=== PATIENT | male | born 1990 | race Caucasian/White ===

== ENCOUNTER 2018-07-09 18:42 | Emergency (ER) | payer OTHER ==
[2018-07-09] MEDS ORDERED: CHERRY SYRUP 10 ML UDC PO ONE (20:25)
[2018-07-09] MEDS ORDERED: diphenhydrAMINE 25 MG CAPSULE PO STA (20:25)
[2018-07-09] MEDS ORDERED: HYDROcod/ACETAM 5/325 MG TABLET PO STA (20:25)
[2018-07-09] MEDS ORDERED: DEXAMETHASONE 10 MG/ML VIAL PO STA (20:25)
[2018-07-09] MEDS ORDERED: NAPROXEN 250 MG TABLET PO STA (20:26)
--- NOTE | 2018-07-09 20:31 | ED Physician Documentation ---
PD HPI URI - Stated complaint Stated Complaint: SORE THROAT - Chief complaint Chief Complaint: Heent - History obtained from History obtained from: Patient - History of Present Illness Timing - onset: How many days ago (2-3) Timing duration: Days (2-3 with worsening today) Timing details: Abrupt onset, Still present Associated symptoms: Sore throat, Swollen nodes, Dry cough. No: Fever, Chills, Nasal congestion, Dyspnea, NVD Contributing factors: No: Sick contact, COPD / asthma Worsened by: Activity, Other (swallowing) Similar symptoms before: Has not had sx before Recently seen: Not recently seen Review of Systems Constitutional: reports: Myalgias. denies: Fever, Chills Nose: denies: Rhinorrhea / runny nose, Congestion Throat: reports: Sore throat Respiratory: reports: Cough GI: denies: Abdominal Pain, Nausea, Vomiting, Diarrhea Skin: denies: Rash Neurologic: denies: Altered mental status, Headache PD PAST MEDICAL HISTORY - Past Medical History Past Medical History: No Cardiovascular: None Respiratory: None Neuro: None Endocrine/Autoimmune: None GI: None : None HEENT: None Psych: Depression, Anxiety Musculoskeletal: None Derm: None - Past Surgical History Past Surgical History: No - Present Medications Home Medications: Ambulatory Orders Medication Instructions Recorded Confirmed Dexamethasone [Decadron] 4 mg PO DAILY #5 tablet 07/09/18 Hydrocodone/Acetaminophen [[place] 1 each PO Q6H PRN #12 tablet 07/09/18 5-325 Tablet] Ibuprofen 600 mg PO TID PRN #20 tablet 07/09/18 diphenhydrAMINE [Benadryl] 25 mg PO Q4-6H PRN #15 capsule 07/09/18 - Allergies Allergies/Adverse Reactions: Allergies Allergy/AdvReac Type Severity Reaction Status Date / Time No Known Drug Allergies Allergy Verified 07/09/18 18:51 - Social History Does the pt smoke?: Yes Smoking Status: Current every day smoker Does the pt drink ETOH?: No Does the pt have substance abuse?: No - Immunizations Immunizations are current?: Yes - POLST Patient has POLST: No PD ED PE NORMAL - Vitals Vital signs reviewed: Yes - General General: Alert and oriented X 3, Well developed/nourished, Other (appears uncomfortable with swallowing. ) - HEENT HEENT: Ears normal, Moist mucous membranes. No: Pharynx benign (some tonsillar swelling without much redness and no exudate. No peritonsillar swelling. Neck with mild anterior adenopathy. ) - Neck Neck: Supple, no meningeal sign - Cardiac Cardiac: RRR, No murmur - Respiratory Respiratory: Clear bilaterally - Abdomen Abdomen: Soft, Non tender - Derm Derm: Normal color, Warm and dry, No rash - Neuro Neuro: Alert and oriented X 3, No motor deficit, Normal speech Results - Vitals Vitals: Vital Signs - 24 hr 07/09/18 07/09/18 18:49 20:45 Temperature 37.9 C H 37.3 C Heart Rate 85 84 Respiratory 20 16 Rate Blood Pressure 152/77 H 138/75 H O2 Saturation 97 99 Oxygen O2 Source Room air - Labs Labs: Laboratory Tests 07/09/18 18:50 Group A Strep Rapid Negative Departure - Departure Disposition: Home, Self Care Clinical Impression: Acute pharyngitis Qualifiers: Pharyngitis/tonsillitis etiology: unspecified etiology Qualified Code(s): J02.9 - Acute pharyngitis, unspecified Condition: Stable Record reviewed to determine appropriate education?: Yes Instructions: ED Pharyngitis Viral Report Pending Follow-Up: [facility] [Provider Group] Prescriptions: Dexamethasone [Decadron] 4 mg PO DAILY #5 tablet diphenhydrAMINE [Benadryl] 25 mg PO Q4-6H PRN #15 capsule PRN Reason: Allergy Symptoms Hydrocodone/Acetaminophen [[place] 5-325 Tablet] 1 each PO Q6H PRN #12 tablet PRN Reason: Pain Ibuprofen 600 mg PO TID PRN #20 tablet PRN Reason: Pain Comments: Stay well-hydrated. Use Tylenol or ibuprofen as needed for pains or fevers. Decadron steroid for inflammation for the next few days. Benadryl as needed for congestion. At hydrocodone if needed for pain. Off work tomorrow. Recheck if not improving over the next couple of days. Your rapid strep test is negative here. There is a culture pending and it will result in a couple of days and we will call you if it shows any bacterial cause. Discharge Date/Time: 07/09/18 20:48
[2018-07-09 20:46] VITALS: BP 138/75
== END 2018-07-09 20:48 | disposition home or self-care (01) ==
LOC: ED 18:42
DX: J02.9 Acute pharyngitis, unspecified (principal); F17.200 Nicotine dependence, unspecified, uncomplicated
CPT/HCPCS: 87070; 87430; 99283; A9270

== ENCOUNTER 2019-01-29 14:08 | Emergency (ER) | payer OTHER ==
--- NOTE | 2019-01-29 15:31 | ED Physician Documentation ---
History of Present Illness - Stated complaint Stated Complaint: NAUSEA/BLURRED VISION - Chief complaint Chief Complaint: Heent - Additonal information Additional information: This is a 28-year-old male who presents with vision changes and nausea which are now resolved. At around 11 AM he began having a waviness and the right peripheral visual field of his right eye. This resolved after 20 minutes or so but then he developed pain behind his left eye (opposite eye from the visual disurbance) which was not associated with any vision changes. He subsequently felt quite nauseated, and he had to go lay down. These symptoms have resolved and now he is currently symptom-free. He denies any changes in vision currently, no eye pain, no nausea. No abdominal pain no vomiting. He is never had this happen before. He has no history of eye problems, no history of migraines. He had no weakness or numbness associated with this event. Review of Systems Constitutional: denies: Fever Eyes: reports: Other (Visual disturbance) GI: reports: Nausea PD PAST MEDICAL HISTORY - Past Medical History Cardiovascular: None Respiratory: None Neuro: None Endocrine/Autoimmune: None GI: None : None HEENT: None Psych: Depression, Anxiety Musculoskeletal: None Derm: None - Past Surgical History Past Surgical History: No - Present Medications Home Medications: Ambulatory Orders Medication Instructions Recorded Confirmed Hydrocodone/Acetaminophen [[place] 1 each PO Q6H PRN #12 tablet 07/09/18 5-325 Tablet] Ibuprofen 600 mg PO TID PRN #20 tablet 07/09/18 dexAMETHasone [Decadron] 4 mg PO DAILY #5 tablet 07/09/18 diphenhydrAMINE [Benadryl] 25 mg PO Q4-6H PRN #15 capsule 07/09/18 - Allergies Allergies/Adverse Reactions: Allergies Allergy/AdvReac Type Severity Reaction Status Date / Time No Known Drug Allergies Allergy Verified 01/29/19 14:16 - Social History Does the pt smoke?: Yes Smoking Status: Current every day smoker Does the pt drink ETOH?: No Does the pt have substance abuse?: No - Immunizations Immunizations are current?: Yes - POLST Patient has POLST: No PD ED PE NORMAL - Vitals Vital signs reviewed: Yes - General General: Alert and oriented X 3, No acute distress - HEENT HEENT: Atraumatic, PERRL, EOMI, Other (Conjunctive are normal without injection. Pupils equal round reactive to light. Visual acuity is 2020 in each eye and bilaterally. Visual puentes are intact to confrontation in both eyes. Fluorescein staining reveals no areas of focal uptake abnormalities. Intraocular pressure is 18 in the left eye, 19 in the right. Extraocular movements are normal without pain) - Neck Neck: Supple, no meningeal sign - Cardiac Cardiac: RRR, No murmur - Respiratory Respiratory: Clear bilaterally - Abdomen Abdomen: Normal bowel sounds, Soft, Non tender, Non distended - Derm Derm: Warm and dry - Extremities Extremities: No deformity - Neuro Neuro: Alert and oriented X 3, pipe bowls paint trimmer 2-12 intact, No motor deficit, No sensory deficit, Normal speech - Psych Psych: Normal mood, Normal affect Results - Vitals Vitals: Vital Signs - 24 hr 01/29/19 01/29/19 14:16 17:19 Temperature 36.5 C Heart Rate 60 60 Respiratory 16 16 Rate Blood Pressure 126/75 124/74 O2 Saturation 100 100 Oxygen O2 Source Room air - EKG (time done) 16:37 Other comments: Other comments (Rate 69, [place] is normal. There is a 1.[address] elevation in V3 and less than [address] elevation in V2, within normal limits for age and sex. There are no ST segment depressions no abnormal T wave inversions.) - Labs Labs: Laboratory Tests 01/29/19 01/29/19 16:11 16:11 WBC 10.7 RBC 5.41 Hgb 15.8 Hct 48.1 MCV 88.9 MCH 29.2 MCHC 32.8 RDW 12.6 Plt Count 256 MPV 10.2 Neut # (Auto) 9.1 H Lymph # (Auto) 1.1 L [place] # (Auto) 0.4 Eos # (Auto) 0.0 Baso # (Auto) 0.0 Absolute Nucleated RBC 0.00 Nucleated RBC % 0.0 Sodium 142 Potassium 4.2 Chloride 103 Carbon Dioxide 30 Anion Gap 9.0 BUN 22 H Creatinine 1.0 Estimated GFR (MDRD) 89 Glucose 116 H Calcium 10.0 Total Bilirubin 0.8 AST 20 ALT 19 Alkaline Phosphatase 40 L Total Protein 8.1 Albumin 5.0 Globulin 3.1 Albumin/Globulin Ratio 1.6 Lipase 41 PD MEDICAL DECISION MAKING - ED course Complexity details: considered differential (Migraine, retinal pathology, electrolyte abnormality, corneal abrasion, glaucoma) ED course: Pt is well appearing and symptom free at this time. Eye exam is normal without signs of abrasion, foreign body. IOP normal bilaterally, no signs of glaucoma. Visual acuity is normal. Visual puentes normal. Neuro exam is normal, and pt never had weakness or numbness. CBC and electrolytes unremarkable. EKG shows no convincing signs of ischemia or dysrhythmia. I discussed with him that the cause of his symptoms is unclear. They are suggestive of migraine but he does not have a history of migraines. I recommended close follow up with his PCP and return to the ED with recurrent or new concerning symptoms. Pt agreed and was discharged home. Departure - Departure Disposition: 01 Home, Self Care Clinical Impression: Blurry vision Condition: Good Comments: You were seen today for vision change, pain behind your eye, as well as nausea. I do not see signs of an emergency with your eyes and your labs are reassuring. I am glad that you are feeling better at this time. I am not sure what the cause of your symptoms is, please follow-up with your primary care provider If you develop recurrent problems or new vision changes, passing out, weakness or numbness, fever chest pain or shortness of breath, or any other concerning symptoms, return to the emergency department. Discharge Date/Time: 01/29/19 17:19
[2019-01-29] MEDS ORDERED: PROPARACAINE 0.5% OPHTH DROPS 15 ML EACHEYE STA (16:02)
[2019-01-29 16:20] LABS: BASOPHILS % (AUTO) 0.3 %; EOSINOPHILS % (AUTO) 0.1 %; HGB - HEMOGLOBIN 15.8 g/dL (14.0-18.0); LYMPHOCYTES # (AUTO) 1.1 10^3/uL (1.5-3.5); LYMPHOCYTES % (AUTO) 9.9 %; MEAN CORPUSCULAR HEMOGLOBIN 29.2 pg (27.0-31.0); MEAN CORPUSCULAR HGB CONC 32.8 g/dL (32.0-36.0); MEAN CORPUSCULAR VOLUME 88.9 fL (80.0-94.0); MEAN PLATELET VOLUME 10.2 fL (7.4-11.4); MONOCYTES # (AUTO) 0.4 10^3/uL (0.0-1.0); MONOCYTES % (AUTO) 4.1 %; NEUTROPHILS # (AUTO) 9.1 10^3/uL (1.5-6.6); NEUTROPHILS % (AUTO) 85.2 %; PLT - PLATELET COUNT 256 10^3/uL (130-450); RED BLOOD COUNT 5.41 10^6/uL (4.70-6.10); RED CELL DISTRIBUTION WIDTH 12.6 % (12.0-15.0); WHITE BLOOD COUNT 10.7 x10^3/uL (4.8-10.8)
[2019-01-29 16:37] LABS: ALBUMIN/GLOBULIN RATIO 1.6 (1.0-2.2); BILIRUBIN,TOTAL 0.8 mg/dL (0.2-1.0); TOTAL PROTEIN 8.1 g/dL (6.7-8.2)
[2019-01-29 17:21] VITALS: BP 124/74
== END 2019-01-29 17:19 | disposition home or self-care (01) ==
LOC: ED 14:08
DX: H53.8 Other visual disturbances (principal); R11.0 Nausea; R94.31 Abnormal electrocardiogram [ECG] [EKG]; F17.200 Nicotine dependence, unspecified, uncomplicated
CPT/HCPCS: 36415; 80053; 83690; 85025; 93005; 99283; 99284; J3490